=== PATIENT | male | born 1935 | race Caucasian/White ===

== ENCOUNTER 2020-02-12 11:26 | Emergency (ER) | payer MEDICARE, OTHER ==
--- NOTE | 2020-02-12 11:46 | ER Document Report ---
ED Medical Screen (RME) - General Chief Complaint: Abnormal Lab Results Stated Complaint: ABNORMAL LABS Time Seen by Provider: 02/12/20 11:41 Primary Care Provider: JENNIE AYERS FNP-C [Primary Care Provider] - Follow up as needed Information source: Patient Notes: Patient states that he has been having upper abdominal pain for the past week with intermittent nausea and vomiting. Last episode of emesis was on Monday of this week. Patient states the pain is a dull ache. Patient states he received a call from his primary doctor that his lab work was abnormal and that he needed to come to the hospital. Patient's lipase was over 7000 when he had his blood work drawn. Patient does admit to drinking alcohol about 2 times a week. Patient does have a previous history of colon and prostate cancer. I have greeted and performed a rapid initial assessment of this patient. A comprehensive ED assessment and evaluation of the patient, analysis of test results and completion of the medical decision making process will be conducted by additional ED providers. Physical Exam - Vital signs Vitals: Temp Pulse Resp BP Pulse Ox 97.8 F 82 20 135/76 H 97 02/12/20 11:34 02/12/20 11:34 02/12/20 11:34 02/12/20 11:34 02/12/20 11:34 - General General appearance: Appears well, Alert Notes: Nontoxic in appearance, upper abdominal tenderness Course - Vital Signs Vital signs: Temp Pulse Resp BP Pulse Ox 97.8 F 82 20 135/76 H 97 02/12/20 11:34 02/12/20 11:34 02/12/20 11:34 02/12/20 11:34 02/12/20 11:34 Doctor's Discharge - Discharge Referrals: JENNIE AYERS FNP-C [Primary Care Provider] - Follow up as needed
[2020-02-12 12:18] LABS: ABSOLUTE EOSINOPHILS # (AUTO) 0.1 10^3/uL (0.0-0.6); ABSOLUTE LYMPHOCYTES (AUTO) 1.1 10^3/uL (0.5-4.7); ABSOLUTE MONOCYTES (AUTO) 0.6 10^3/uL (0.1-1.4); ABSOLUTE NEUT (AUTO) 5.5 10^3/uL (1.7-8.2); BASOPHILS % (AUTO) 0.3 % (0-2); EOSINOPHILS % (AUTO) 1.2 % (0-6); HEMATOCRIT 41.8 % (37.9-51.0); LYMPHOCYTES % (AUTO) 14.8 % (13-45); MEAN CORPUSCULAR HEMOGLOBIN 34.2 pg (27.0-33.4); MEAN CORPUSCULAR HGB CONC 35.7 g/dL (32.0-36.0); MEAN CORPUSCULAR VOLUME 96 fl (80-97); MONOCYTES % (AUTO) 8.4 % (3-13); PLATELET COUNT 192 10^3/uL (150-450); RED BLOOD COUNT 4.37 10^6/uL (4.35-5.55); RED CELL DISTRIBUTION WIDTH 13.8 % (11.5-14.0); SEGMENTED NEUTROPHILS % (AUTO) 75.3 % (42-78); TOTAL CELLS COUNTED % (AUTO) 100 %; WHITE BLOOD COUNT 7.4 10^3/uL (4.0-10.5)
[2020-02-12 12:27] LABS: APPEARANCE,URINE CLEAR; BILIRUBIN,URINE SMALL (NEGATIVE); COLOR,URINE AMBER; GLUCOSE, URINE NEGATIVE (NEGATIVE); KETONES,URINE NEGATIVE (NEGATIVE); LEUKOCYTE ESTERASE,URINE NEGATIVE (NEGATIVE); NITRITE,URINE NEGATIVE (NEGATIVE); PROTEIN,URINE 30 mg/dL (NEGATIVE); URINE SPECIFIC GRAVITY 1.023
[2020-02-12 12:35] LABS: ALBUMIN 3.9 g/dL (3.5-5.0); ALKALINE PHOSPHATASE 399 U/L (38-126); ANION GAP 9 (5-19); ASPARTATE AMINO TRANSFERASE 69 U/L (17-59); BILIRUBIN,DIRECT 2.7 mg/dL (0.0-0.4); BILIRUBIN,TOTAL 4.4 mg/dL (0.2-1.3); BLOOD UREA NITROGEN 23 mg/dL (7-20); CALCIUM 9.2 mg/dL (8.4-10.2); CARBON DIOXIDE 26 mmol/L (22-30); CHLORIDE 104 mmol/L (98-107); GLUCOSE 101 mg/dL (75-110); TOTAL PROTEIN 7.2 g/dL (6.3-8.2)
--- NOTE | 2020-02-12 12:53 | RADIOLOGY REPORT (SQ) ---
EXAM DESCRIPTION: CHEST SINGLE VIEW IMAGES COMPLETED DATE/TIME: 02/12/2020 12:39 pm REASON FOR STUDY: shortness of breath COMPARISON: None. EXAM PARAMETERS: NUMBER OF VIEWS: One view. TECHNIQUE: Single frontal radiographic view of the chest acquired. RADIATION DOSE: NA LIMITATIONS: None. FINDINGS: LUNGS AND PLEURA: Questionable retro diaphragmatic opacity on the right. No additional ai rspace disease. No pleural effusion or pneumothorax. MEDIASTINUM AND HILAR STRUCTURES: No masses. Contour normal. HEART AND VASCULAR STRUCTURES: Heart normal in size. Normal vasculature. BONES: No acute findings. HARDWARE: None in the chest. OTHER: No other significant finding. IMPRESSION: Possible right retro diaphragmatic airspace disease. Two view could be considered for c onfirmation. TECHNICAL DOCUMENTATION: JOB ID: [id number] 2010 [employer]- All Rights Reserved Reading location - IP/workstation name: [email or web address]
--- NOTE | 2020-02-12 14:01 | ER Document Report ---
ED General - General Chief Complaint: Abnormal Lab Results Stated Complaint: ABNORMAL LABS Time Seen by Provider: 02/12/20 11:41 Primary Care Provider: JENNIE AYERS FNP-C [Primary Care Provider] - Follow up as needed Mode of Arrival: Ambulatory Information source: Patient Notes: Patient is an 84-year-old male presenting to the emergency department after his doctor called him and told him his lipase was elevated. Patient reports he was seen at his primary care provider's office on Monday for vomiting, chills and abdominal pain. He states that they prescribed him Cipro and lisa some labs. He states today they called him and told him that his lipase was 7000. He denies ever having any history of pancreatitis. He does admit to drinking 2 alcoholic beverages per day. He reports past medical history of 3 abdominal surgeries for colon cancer. He states that he has hyperlipidemia and takes Crestor but takes no other medications. - Related Data Allergies/Adverse Reactions: No Known Allergies Allergy (Unverified 02/12/20 11:58) Home Medications: crestor Past Medical History - General Information source: Patient - Social History Smoking Status: Former Smoker Chew tobacco use (# tins/day): No Frequency of alcohol use: 1-2 x/week, 3-4 beers Drug Abuse: None Family History: Reviewed & Not Pertinent Patient has homicidal ideation: No - Past Medical History Cardiac Medical History: Reports: Hx Hypercholesterolemia Malignancy Medical History: Reports Hx Colorectal Cancer - 1972, Reports Hx Prostate Cancer - 2004 Past Surgical History: Reports: Hx Abdominal Surgery - x3 for colon cancer, mesh placed Review of Systems - Review of Systems Gastrointestinal: Abdominal pain, Constipation. denies: Diarrhea, Nausea, Vomiting -: Yes All other systems reviewed and negative Physical Exam - Vital signs Vitals: Temp Pulse Resp BP Pulse Ox 97.8 F 82 20 135/76 H 97 02/12/20 11:34 02/12/20 11:34 02/12/20 11:34 02/12/20 11:34 02/12/20 11:34 - Notes Notes: PHYSICAL EXAMINATION: GENERAL: Well-appearing, well-nourished and in no acute distress. HEAD: Atraumatic, normocephalic. EYES: Pupils equal round and reactive to light, extraocular movements intact, sclera anicteric, conjunctiva are slightly yellow. ENT: Nares patent, oropharynx clear without exudates. Moist mucous membranes. NECK: Normal range of motion, supple without lymphadenopathy LUNGS: Breath sounds clear to auscultation bilaterally and equal. No wheezes rales or rhonchi. HEART: Regular rate and rhythm without murmurs. ABDOMEN: Soft, nondistended abdomen. Mild tenderness in the left lower and left upper quadrant. No guarding, no rebound. Mass palpated just superior to the umbilicus. Musculoskeletal: Normal range of motion, no pitting or edema. No cyanosis. NEUROLOGICAL: Cranial nerves grossly intact. Normal speech, normal gait. Normal sensory, motor exams PSYCH: Normal mood, normal affect. SKIN: Warm, Dry, normal turgor, no rashes or lesions noted. Course - Re-evaluation Re-evalutation: Patient has significantly elevated lipase. He also has hyperbilirubinemia and elevated LFTs. He has what appears to be 2 stones in the common bile duct causing common bile duct dilation. He is in need of an ERCP. Will initiate transfer at this time. 02/12/20 16:33 Call placed to [facility]. Patient is in need of an ERCP. patient updated on plan of care, patient is agreeable to transfer. Patient denies the need for any pain or nausea medications at this time. 02/12/20 16:48 Patient accepted for transfer to [facility]. Spoke with Dr. Ashok Christopher M.D. (resident) who is accepting the patient on behalf of Dr. Bakari Reynolds. - Vital Signs Vital signs: Temp Pulse Resp BP Pulse Ox 97.8 F 82 22 H 143/96 H 100 02/12/20 11:41 02/12/20 11:34 02/12/20 13:01 02/12/20 16:01 02/12/20 16:01 - Laboratory Result Diagrams: 02/12/20 12:05 02/12/20 12:05 Laboratory results interpreted by me: 02/12/20 02/12/20 02/12/20 12:05 12:05 12:05 MCH 34.2 H BUN 23 H Creatinine 1.40 H Est GFR ( Amer) 58 L Est GFR (MDRD) Non-Af 48 L Total Bilirubin 4.4 H Direct Bilirubin 2.7 H AST 69 H ALT 107 H Alkaline Phosphatase 399 H Lipase 9974.0 H Urine Protein 30 H Urine Bilirubin SMALL H Urine Urobilinogen 2.0 H Discharge - Discharge Clinical Impression: Acute gallstone pancreatitis, Elevated bilirubin, Elevated lipase Condition: Stable Disposition: [facility] Referrals: JENNIE AYERS FNP-C [Primary Care Provider] - Follow up as needed
--- NOTE | 2020-02-12 14:42 | RADIOLOGY REPORT (SQ) ---
EXAM DESCRIPTION: U/S ABDOMEN LIMITED W/O DOP IMAGES COMPLETED DATE/TIME: 02/12/2020 2:13 pm REASON FOR STUDY: elevated lipase,abdpain COMPARISON: None. TECHNIQUE: Dynamic and static grayscale images acquired of the abdomen and recorded on PACS. Additio nal selected color Doppler and spectral images recorded. LIMITATIONS: Some structures nonvisualized due to overlying bowel gas. FINDINGS: PANCREAS: Not visualized due to overlying bowel gas. LIVER: No masses. Echotexture normal. LIVER VASCULATURE: Normal directional flow of the main portal vein and hepatic veins. GALLBLADDER: Nonvisualized. ULTRASOUND-DETECTED NARVAEZ'S SIGN: Negative. INTRAHEPATIC DUCTS AND COMMON DUCT: CBD and intrahepatic ducts normal caliber. No filling defects. INFERIOR VENA CAVA: Normal flow. AORTA: Proximal aorta measures up to 2.9 cm. RIGHT KIDNEY: Normal size measuring 11.2 cm. Normal echogenicity. Lobular contour. No definitive s olid masses. No hydronephrosis. No calcifications. PERITONEAL AND RIGHT PLEURAL SPACE: No ascites or effusions. OTHER: No other significant findings. IMPRESSION: 1. Pancreas nonvisualized due to overlying bowel gas. 2. Gallbladder nonvisualized. 3. 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 Follow-up recommendations as below. COMMENT: AAA Size: Follow-up Recommendation 2.6-2.9 cm Every 5 years* *Based upon the Society for Vascular Surgery Guidelines: J Vasc Surg. 2009 Jul;50(4 Suppl):S2-49 *For aortas of maximum diameter of 2.6-2.9 cm meeting the criteria for AAA (?1.5 x proximal normal se gment) TECHNICAL DOCUMENTATION: JOB ID: [id number] 2010 [employer]- All Rights Reserved Reading location - IP/workstation name: [email or web address]
--- NOTE | 2020-02-12 16:10 | RADIOLOGY REPORT (SQ) ---
EXAM DESCRIPTION: CT ABD/PELVIS WITH IV ONLY IMAGES COMPLETED DATE/TIME: 02/12/2020 3:51 pm REASON FOR STUDY: abd pain COMPARISON: None. TECHNIQUE: CT scan of the abdomen and pelvis performed using helical scanning technique with dynamic intravenous contrast injection. No oral contrast. Images reviewed with lung, soft tissue, and bone windows. Reconstructed coronal and sagittal MPR images reviewed. Delayed images for evaluation of the urinary system also acquired. All images stored on PACS. All CT scanners at this facility use dose modulation, iterative reconstruction, and/or weight based d osing when appropriate to reduce radiation dose to as low as reasonably achievable (ALARA). [facility]: Dose Right [facility]: CareDose [facility]: Dose Right [facility]: Teradose 4D [facility]: MaxVision CONTRAST TYPE AND DOSE: contrast/concentration: Isovue 350.00 mg/ml; Total Contrast Delivered: 100.0 ml; Total Saline Delivered: 72.0 ml RENAL FUNCTION: Creatinine 1.4 RADIATION DOSE: CT Rad equipment meets quality standard of care and radiation dose reduction techniq ues were employed. CTDIvol: NaN - NaN mGy. DLP: 0 mGy-cm.. LIMITATIONS: None. FINDINGS: LOWER CHEST: No acute findings. Coronary atherosclerosis. LIVER: No focal lesions. No intrahepatic ductal dilation. Colonic interposition anterior to the meliza er. SPLEEN: Normal size. No focal lesions. PANCREAS: Two radiodensities within the distal CBD, largest measuring 8 mm (series 3, image 41 and s eries 3, image 37). Mild edematous appearance of the pancreatic head and uncinate process. No signi ficant peripancreatic stranding or fluid. Pancreatic parenchyma enhances symmetrically. Main pancre atic duct is nondilated. GALLBLADDER: Contracted gallbladder with cholelithiasis. No pericholecystic inflammatory change. CB D measures up to 10 mm. No intrahepatic ductal dilation. ADRENAL GLANDS: No significant masses or asymmetry. RIGHT KIDNEY AND URETER: No solid masses. Nonobstructing upper pole stone measuring 3 mm. No hydr onephrosis or hydroureter. LEFT KIDNEY AND URETER: No solid masses. No significant calcifications. No hydronephrosis or hydr oureter. AORTA AND VESSELS: No aneurysm. No dissection. Renal arteries, SMA, celiac without stenosis. RETROPERITONEUM: No retroperitoneal adenopathy, hemorrhage or masses. BOWEL AND PERITONEAL CAVITY: No masses or inflammatory changes. No free fluid or peritoneal masses. 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 APPENDIX: Normal. PELVIS: Unremarkable urinary bladder. Brachy therapy seeds within the prostate. Bilateral fat conta ining inguinal hernias. ABDOMINAL WALL: No masses. No hernias. BONES: No significant or acute findings. Ella minimal grade 1 anterolisthesis of L4 on L5. Lower l umbar spondylosis facet arthropathy. OTHER: No other significant finding. IMPRESSION: 1. Choledocholithiasis with 2 radiopaque stones within the distal CBD, largest measurin g 8 mm. Mild edematous appearance of the pancreatic head and uncinate process. No significant perip ancreatic stranding. 2. Contracted gallbladder with additional stones. No evidence of acute cholecystitis. TECHNICAL DOCUMENTATION: JOB ID: [id number] Quality ID # [id number]: Final reports with documentation of one or more dose reduction techniques (e.g., Au tomated exposure control, adjustment of the mA and/or kV according to patient size, use of iterative reconstruction technique) 2010 [employer]- All Rights Reserved Reading location - IP/workstation name: [email or web address]
[2020-02-12 18:20] VITALS: BP 138/81
--- NOTE | 2020-02-12 19:55 | EKG REPORT ---
SEVERITY:- ABNORMAL ECG - SINUS RHYTHM LAD, CONSIDER LEFT ANTERIOR FASCICULAR BLOCK : Confirmed by: Shaw Evans MD 12-Feb-2020 19:53:32
== END 2020-02-12 18:19 | disposition short-term general hospital (02) ==
LOC: ER 11:26
DX: K85.10 Biliary acute pancreatitis without necrosis or infection (principal); K80.20 Calculus of gallbladder without cholecystitis without obstruction; K59.00 Constipation, unspecified; E78.5 Hyperlipidemia, unspecified; Z79.899 Other long term (current) drug therapy; Z87.891 Personal history of nicotine dependence; Z85.048 Personal history of other malignant neoplasm of rectum, rectosigmoid junction, and anus; Z85.46 Personal history of malignant neoplasm of prostate
CPT/HCPCS: 36415; 71045; 74177; 76705; 80053; 81001; 82550; 83690; 85025; 93005; 93010; 99285